=== PATIENT | female | born 1940 | race Two or more races ===

== ENCOUNTER 2020-10-15 08:00 | Inpatient (IN) | payer OTHER ==
[~2020-10-15] VITALS: Ht 165.1 cm; Wt 84.8 kg
[2020-10-15] MEDS ORDERED: ZOCOR40 MG PO (12:41)
[2020-10-15] MEDS ORDERED: ALTACE2.5 MG PO (12:41)
[2020-10-15] MEDS ORDERED: GLIMEPIRIDE2 MG (12:42)
[2020-10-15] MEDS ORDERED: TOPROL XL50 M1 PO (12:42)
[2020-10-15] MEDS ORDERED: ELIQUIS5 MG PO (12:42)
[2020-10-15] MEDS ORDERED: ULTRAM50 MG PO (12:42)
[2020-10-15] MEDS ORDERED: ANASTROZOLE1 MG PO (12:43)
[2020-10-20] MEDS ORDERED: ALENDRONATE SOD70 MG (07:56)
[2020-10-26] MEDS ORDERED: CIPROFLOXACIN750 MG PO (07:56)
[2020-10-26] MEDS ORDERED: PERCOCET 5-3251 EACH PO (07:56)
[2020-10-26] MEDS ORDERED: ELIQUIS2.5 MG PO (07:56)
== END 2020-10-26 11:11 | DRG 470 ==
LOC: SURH 08:00 → O/R 10-20 06:18 → SURH 10-20 08:00
PROVIDERS: ADMIT Orthopaedic Surgery; ATTEND Orthopaedic Surgery
PROC: 0SRD0J9 Replacement of Left Knee Joint with Synthetic Substitute, Cemented, Open Approach (ICD-10-PCS; principal; 2020-10-20 13:00)
PROC: 30233N1 Transfusion of Nonautologous Red Blood Cells into Peripheral Vein, Percutaneous Approach (ICD-10-PCS; 2020-10-22)
DX: T84.033A Mechanical loosening of internal left knee prosthetic joint, initial encounter (principal); D62 Acute posthemorrhagic anemia; T84.013A Broken internal left knee prosthesis, initial encounter; M17.12 Unilateral primary osteoarthritis, left knee; M85.462 Solitary bone cyst, left tibia and fibula; M25.662 Stiffness of left knee, not elsewhere classified; I10 Essential (primary) hypertension; E11.9 Type 2 diabetes mellitus without complications; E66.9 Obesity, unspecified

== ENCOUNTER → 2023-06-13 09:19 | Outpatient (CLI) | payer OTHER ==
[~2023-06-13 09:19] MED LIST: ALENDRONATE SOD70 MG; ALTACE2.5 MG PO; ANASTROZOLE1 MG PO; CIPROFLOXACIN750 MG PO; ELIQUIS2.5 MG PO; ELIQUIS5 MG PO; GLIMEPIRIDE2 MG; PERCOCET 5-3251 EACH PO; TOPROL XL50 M1 PO; ULTRAM50 MG PO; ZOCOR40 MG PO
[2023-06-13 10:35] LABS: HEMATOCRIT 33.5 % (36.0-45.00); HEMOGLOBIN 11.2 g/dL (12.0-15.00); MEAN CELL VOLUME 92.9 fL (80.00-100.00); MEAN CORPUSCULAR HGB CONC 33.4 g/dl (32.0-36.0); PLATELET COUNT 184 K/uL (150-450); RED BLOOD COUNT 3.61 M/uL (4.00-6.00); RED CELL DISTRIBUTION WIDTH 13.2 % (11.5-14.5)
[2023-06-13 11:06] LABS: % SATURACION 25.2 % (15-50); ALBUMIN 3.6 gm/dL (3.4-5.0); BILIRUBIN TOTAL 1.38 mg/dL (0.3-1.2); BILIRUBIN,CONJUGATED 0.37 mg/dL (0.0-0.2); BILIRUBIN,UNCONJUGATED 1.01 mg/dL (0.0-0.6); CALCIUM 8.9 mg/dL (8.5-10.1); CREATININE SERUM 0.74 mg/dL (0.55-1.02); GFR 75.32; POTASSIUM 4.01 mEq/L (3.5-5.1); TOTAL PROTEIN 7.2 gm/dL (6.4-8.2); TSH 1.51 uIU/mL (0.358-3.74)
[2023-06-13 11:36] LABS: FOLIC ACID 13.98 ng/ml (4.78-20)
[2023-06-13 11:37] LABS: FERRITIN 393.2 NG/ML (8-252)
== END | disposition home or self-care (01) ==
LOC: LAB 09:19
PROVIDERS: ATTEND Internal Medicine Hematology & Oncology
DX: D50.8 Other iron deficiency anemias (principal); I10 Essential (primary) hypertension; R74.02 Elevation of levels of lactic acid dehydrogenase [LDH]; K76.89 Other specified diseases of liver; R70.0 Elevated erythrocyte sedimentation rate; D51.1 Vitamin B12 deficiency anemia due to selective vitamin B12 malabsorption with proteinuria; D51.0 Vitamin B12 deficiency anemia due to intrinsic factor deficiency; E03.8 Other specified hypothyroidism; C50.919 Malignant neoplasm of unspecified site of unspecified female breast; R97.8 Other abnormal tumor markers; R97.0 Elevated carcinoembryonic antigen [CEA]; C50.811 Malignant neoplasm of overlapping sites of right female breast; D62 Acute posthemorrhagic anemia; M17.12 Unilateral primary osteoarthritis, left knee; Z96.652 Presence of left artificial knee joint; E11.9 Type 2 diabetes mellitus without complications; I80.223 Phlebitis and thrombophlebitis of popliteal vein, bilateral